=== PATIENT | female | born 1955 | race Caucasian/White ===

== ENCOUNTER 2019-12-12 10:54 | Outpatient (CLI) | payer OTHER, SELFPAY | END 2019-12-12 10:55 | disposition home or self-care (01) | LOC: ANHSURGERY 10:59 | PROVIDERS: PCP Physician Assistant; Visit Provider Urology | DX: N30.10 Interstitial cystitis (chronic) without hematuria (principal) | CPT/HCPCS: 87086 ==

== ENCOUNTER 2019-12-20 00:33 | Outpatient (CLI) | payer OTHER, SELFPAY ==
[2019-12-20 19:29] LABS: SARS-CoV-2 RNA PCR Negative
== END 2019-12-20 00:34 | disposition home or self-care (01) ==
LOC: ANHCOVIDDT 00:33
PROVIDERS: PCP Physician Assistant; Visit Provider Urology
DX: Z01.812 Encounter for preprocedural laboratory examination (principal); Z20.828 Contact with and (suspected) exposure to other viral communicable diseases
CPT/HCPCS: 87635; C9803; U0003

== ENCOUNTER 2019-12-23 00:59 | Day surgery (SDC) | payer OTHER, SELFPAY ==
[2019-12-10 09:50] VITALS: BMI 31.9
--- NOTE | 2019-12-22 07:40 | P.HP_ITS ---
H&P: HPI History of Present Illness Date/Time: 12/22/19 07:40 Chief complaint: hunters ulcer Narrative: Miriam Romo is a 64 year old female with suprapubic pain and h/o Hunner Ulcer last treated without steriid in 09/10 [facility] Social History Social History Smoking status: Never smoker Second hand tobacco smoke exposure: No Alcohol intake: never Substance use: never Spiritual care concerns: No Meds Home Medications and Allergies Home Medications Medication Instructions Recorded Confirmed Type aspirin 81 mg PO DAILY 12/10/19 12/10/19 History calcium carb and citrate-vitD3 2 tablet PO DAILY 12/10/19 12/10/19 History cetirizine [Zyrtec] 10 mg PO HS 12/10/19 12/10/19 History cholecalciferol (vitamin D3) 125 mcg PO DAILY 12/10/19 12/10/19 History [Vitamin D3] meloxicam 15 mg DAILY 12/10/19 12/10/19 History omega 2-zvp-kdh-fish oil [Fish Oil] 1 cap PO DAILY 12/10/19 12/10/19 History omeprazole 20 mg PO DAILY 12/10/19 12/10/19 History phenazopyridine 200 mg DAILY 12/10/19 12/10/19 History tramadol 25 mg PO HS 12/10/19 12/10/19 History Allergies Allergy/AdvReac Type Severity Reaction Status Date / Time amoxicillin Allergy Itching Verified 12/10/19 09:34 Exam Const: General: no acute distress HENMT: General nose exam: Normal nares present Eyes: EOM: EOMs intact bilaterally Neck: Neck: supple Resp: Effort & Inspection: normal respiratory effort GI: GI Palp: Yes Soft to palpation Skin: General skin exam: normal color Neuro: Motor exam (neuro): Normal motor muscle tone present throughout Psych: Mental Status: mental status grossly normal Assessment and Plan Assessment and plan (1) Hunner's ulcer: Code(s): N30.10 - Interstitial cystitis (chronic) without hematuria Status: Acute Assessment and Plan: cysto/biopsy/steroid injection
--- NOTE | 2019-12-22 13:08 | WPDANESEPP ---
Anes - Eval Pre Procedure Procedure: Operation Date: 12/23/19 08:00 Proposed Procedures p Cystoscopy, Bladder Biopsy with Steroid Injection - Jewel Tovar MD Date/Time: 12/22/19 13:08 Pre Op Diagnosis: hunters ulcer Patient Data Age: 64 Gender: F Height: 1.73 m Weight: 95.25 kg Allergies Allergy/AdvReac Type Severity Reaction Status Date / Time amoxicillin Allergy Itching Verified 12/10/19 09:34 Home Medications Medication Instructions Recorded Confirmed Type aspirin 81 mg PO DAILY 12/10/19 12/10/19 History calcium carb and citrate-vitD3 2 tablet PO DAILY 12/10/19 12/10/19 History cetirizine [Zyrtec] 10 mg PO HS 12/10/19 12/10/19 History cholecalciferol (vitamin D3) 125 mcg PO DAILY 12/10/19 12/10/19 History [Vitamin D3] meloxicam 15 mg DAILY 12/10/19 12/10/19 History omega 4-fvu-ffa-fish oil [Fish Oil] 1 cap PO DAILY 12/10/19 12/10/19 History omeprazole 20 mg PO DAILY 12/10/19 12/10/19 History phenazopyridine 200 mg DAILY 12/10/19 12/10/19 History tramadol 25 mg PO HS 12/10/19 12/10/19 History Patient hx anesthesia problems: post op nausea/vomiting Family hx anesthesia problems: none PMFSH Past Medical History Medical History (Updated 12/22/19 @ 13:12 by Amna Ibarra CRNA) Arthritis GERD (gastroesophageal reflux disease) Hunner's ulcer IBS (irritable bowel syndrome) Surgical History Surgical History (Updated 12/22/19 @ 13:10 by Amna Ibarra CRNA) H/O: hysterectomy History of knee replacement Social History Social History Smoking status: Never smoker Second hand tobacco smoke exposure: No Alcohol intake: never Substance use: never Spiritual care concerns: No Exam Day of Procedure 12/22/19 13:08
[2019-12-23] VITALS (8 sets, daily range): BP systolic 124–153; BP diastolic 69–79; PULSE 61–86; RESP 10–16; TEMP 36.1–36.3; O2SAT 96–100
--- NOTE | 2019-12-23 06:54 | WPDANESEPPF ---
Anes - Initial Pre Proc Eval Procedure: Operation Date: 12/23/19 08:00 Proposed Procedures p Cystoscopy, Bladder Biopsy with Steroid Injection - Jewel Tovar MD Date/Time: 12/23/19 06:54 Surgeon: Jewel Tovar MD Pre Op Diagnosis: hunters ulcer Patient Data Age: 64 Gender: F Height: 5 ft 8 in Weight: 97.8 kg Allergies Allergy/AdvReac Type Severity Reaction Status Date / Time amoxicillin Allergy Intermediate Itching Verified 12/23/19 06:27 Home Medications Medication Instructions Recorded Confirmed Type aspirin 81 mg PO DAILY 12/10/19 12/23/19 History calcium carb and citrate-vitD3 2 tablet PO DAILY 12/10/19 12/23/19 History cetirizine [Zyrtec] 10 mg PO HS 12/10/19 12/23/19 History cholecalciferol (vitamin D3) 125 mcg PO DAILY 12/10/19 12/23/19 History [Vitamin D3] meloxicam 15 mg DAILY 12/10/19 12/23/19 History omega 1-fbu-zow-fish oil [Fish Oil] 1 cap PO DAILY 12/10/19 12/23/19 History omeprazole 20 mg PO DAILY 12/10/19 12/23/19 History phenazopyridine 200 mg DAILY 12/10/19 12/23/19 History tramadol 25 mg PO HS 12/10/19 12/23/19 History Patient hx anesthesia problems: post op nausea/vomiting Family hx anesthesia problems: none PMFSH Past Medical History Medical History (Updated 12/22/19 @ 13:12 by Amna Ibarra CRNA) Arthritis GERD (gastroesophageal reflux disease) Hunner's ulcer IBS (irritable bowel syndrome) Surgical History Surgical History (Updated 12/22/19 @ 13:10 by Amna Ibarra CRNA) H/O: hysterectomy History of knee replacement Social History Social History Smoking status: Never smoker Second hand tobacco smoke exposure: No Alcohol intake: never Substance use: never Living arrangements: alone Spiritual care concerns: No Anes - Eval Final PreProcedure Day of Procedure 12/23/19 06:54 Patient weight: overweight Heart: regular rate and rhythm Lungs: clear to auscultation Airway: Mallampati scale class II Neurological: alert and oriented Last oral intake: >/= 8 hours ASA classification: II Emergent: no Anesthetic plan: proceed Anesthesia type and monitoring: general GIVS and standard monitoring Informed Consent: The patient's anesthetic plan and its attendant risks and benefits were discussed with the patient/family/POA. Questions were solicited and answers provided to the satisfaction of the patient/family/POA.
[2019-12-23] MEDS: LACTATED RINGERS 1,000 ML 30 ML IV CONT (07:09)
[2019-12-23] MEDS: SCOPOLAMINE 1.5 MG PATCH TRANSDERM (07:10)
[2019-12-23] MEDS: ONDANSETRON INJ 4 MG/2 ML VIAL IV PUSH (07:10)
--- NOTE | 2019-12-23 07:24 | WPDHPUPDATE1 ---
History and Physical Update Update Date/Time: 12/23/19 07:24 History and Physical has been reviewed, including an updated exam of the patient. There are NO changes in the patient's condition. Risks, benefits, and alternatives have been discussed and questions answered. Patient agrees to proceed with procedure.
[2019-12-23] MEDS: levoFLOXacin 500 MG/D5W 100 ML 500 MG/100 ML BAG 100 MG IVPB (08:02)
[2019-12-23] MEDS: LIDOCAINE HCL 2% GEL UROJET 10 ML PKG MUCOUS MEM (08:14)
[2019-12-23] MEDS: TRIAMCINOLONE ACET INJ 40 MG/ML VIAL 120 MG XX (08:20)
--- NOTE | 2019-12-23 08:25 | PM.PROC ---
Procedure Note - Detailed Date of procedure: 12/23/19 Pre-op diagnosis: hunters ulcer Hunner's ulcer Post-op diagnosis: same Procedure performed: Cystoscopy with bladder biopsy and injection of steroid Description of procedure: After anesthesia was induced the patient was correctly identified and informed consent was obtained. They are placed in the dorsal lithotomy position. There prepped and draped in a sterile fashion. A time-out performed. I performed cystoscopy. There were areas of Hunner's ulceration inside the bladder. This was biopsied in generously fulgurated. I then injected Kenalog at a dose of 40 milligrams/mL. I injected 3 cc total. There was minimal bleeding from the injection sites. The bladder was examined under low insufflation pressures and there was no active bleeding. The bladder was drained. The awakened and transferred to the PACU in stable condition. Of note she has a known reaction to steroids which her rash. We did this procedure in the past not using steroids and it did not last very long. She would like a repeat trial of steroid. Implants: None Anesthesia: MAC Surgeon: Jewel Tovar MD Drains: No Packing: No Pathology: yes (Bladder biopsy) Complications: No immediate complications Condition: stable Disposition: PACU
== END 2019-12-23 10:23 | disposition home or self-care (01) ==
PROVIDERS: PCP Physician Assistant; Visit Provider Urology
PROC: 0TBB8ZX Excision of Bladder, Via Natural or Artificial Opening Endoscopic, Diagnostic (ICD-10-PCS; CPT 52204; principal; 2019-12-23 08:00)
DX: N30.10 Interstitial cystitis (chronic) without hematuria (principal); K21.9 Gastro-esophageal reflux disease without esophagitis; M19.90 Unspecified osteoarthritis, unspecified site; K58.9 Irritable bowel syndrome, unspecified
CPT/HCPCS: 52204; 52283; 87635; 88305; A9270; C9803; J1100; J1200; J1956; J2250; J2405; J2704; J3010; J3301; J7120; U0003

== ENCOUNTER 2021-08-11 09:19 | Outpatient (CLI) | payer OTHER, SELFPAY | END 2021-08-11 09:20 | disposition home or self-care (01) | LOC: ANHSURGERY 09:26 | PROVIDERS: PCP Physician Assistant; Visit Provider Urology | DX: N30.10 Interstitial cystitis (chronic) without hematuria (principal); Z01.818 Encounter for other preprocedural examination | CPT/HCPCS: 87086; 87088 ==

== ENCOUNTER 2021-08-16 00:54 | Day surgery (SDC) | payer OTHER, SELFPAY ==
--- NOTE | 2021-08-09 10:38 | SUR.PREOP ---
Addendum entered by Amparo Rabago RN 08/09/21 10:56: INSTRUCTED TO STOP ASPIRIN & FISH OIL 08/09/21 Original Note: Report to the Outpatient Waiting Room, entrance under the hooper pavilion located off [facility], at time 1130 on date 08/16/21. OR Time: 1330. - You and your visitor will be asked a series of questions to screen for COVID 19 for your protection. - A mask is required within the hospital. Preoperative COVID Testing Requirements: No COVID Test needed if: (proof is required; if not received patient will have Rapid Test prior to entry) - Patient has received COVID Vaccine at least 14 days prior to procedure date or - Patient has positive COVID test result within last 90 days of surgery date. COVID Test needed if above criteria is not met If not COVID vaccinated a COVID test must be conducted within 72 hours of surgery and patient is asked to isolate self from time of testing until procedure. You will go to the [facility] for your COVID testing. The [facility] site is located at the corner of [address] [facility]. You will only be called if COVID results are positive and your surgeon may reschedule your elective surgery date. Patients may have clear liquids (water, carbonated beverages, clear teas, apple juice) until 3 hours prior to surgery with a maximum of 20 ounces. - NO CLEAR LIQUIDS AFTER 1030 - No food from midnight until time of surgery - Infants may have breast milk until 4 hours before surgery, formula 6 hours prior to surgery. - Children will be allowed to drink immediately following surgery. If applicable, please bring a bottle or sippy cup to assist with drinking. Juice, water, soda, and popsicles are readily available. For infants on formula, please bring formula the day of surgery. Pacifiers are allowed. Take the following medications with a SIP of water the morning of surgery: TRAMADOL, ACETAMINOPHEN Medications to discontinue per physician VITAMINS & SUPPLEMENTS STOP ON 08/13/21, CALL DR PAINTING IN REGARDS TO STOPPING ASPIRIN & FISH OIL Please no make-up, nail ethiopian, hairspray, perfume, deodorant, or body powder the day of surgery. No jewelry (including any body piercings) or valuables the day of surgery, leave them at home. Please take a shower or bath the night before, or the morning of, surgery with an antibacterial soap. Wear comfortable, loose fitting clothing. Children are encouraged to wear pajamas. - Jewelry must be removed prior to entering the operating room. Rings and piercings that are not removed may be cut off. - The hospital will not accept responsibility for valuables. - Please leave all valuables, including medications, at home the day of surgery. If you are going home after surgery, a licensed driver helper must drive you home. - NO public transportation without another adult. - We recommend that an adult stay with you for 24 hours following discharge. - We also recommend that you do not drive, make important decision, drink alcoholic beverages, or take any drugs that were not prescribed by your health care provider for at least 24 hours after your discharge time. For Pediatric surgeries, we recommend two adults accompany the child home (only one inside the building at this time). One visitor will be allowed to accompany the patient into the hospital. Patients visitor will be instructed to remain with patient at all times or leave the building. We will allow the visitor to come back to the postoperative area when patient is ready. Follow any additional instructions given to you from your surgeon. Telephone instructions given to CASSIDY DELEON and asked if any additional questions and then verbalized understanding. Patient advised to call surgeon office or pre surgery nurse liaison [phone] if any additional questions.
[2021-08-09 10:46] VITALS: BMI 32.2
--- NOTE | 2021-08-13 10:23 | PM.IMHP ---
H&P: HPI History of Present Illness Date/Time: 08/13/21 10:23 History of Hunner's ulcer. Has recurrent symptoms. Here today for cystoscopy biopsy steroid injection Chief Complaint: Hunner's ulcer Review of Systems Review of Systems: All systems reviewed & are unremarkable except as noted in HPI and below PMFSH Past Medical History Medical History Arthritis GERD (gastroesophageal reflux disease) Hunner's ulcer IBS (irritable bowel syndrome) Surgical History Surgical History H/O: hysterectomy History of knee replacement Social History Social History Smoking status: Never smoker Second hand tobacco smoke exposure: No Alcohol intake: never Substance use: never Spiritual care concerns: No Meds Home Medications and Allergies Home Medications Medication Instructions Recorded Confirmed Type aspirin 81 mg PO HS 12/10/19 08/09/21 History calcium carb and citrate-vitD3 2 tablet PO DAILY 12/10/19 08/09/21 History cetirizine [Zyrtec] 10 mg PO HS 12/10/19 08/09/21 History cholecalciferol (vitamin D3) 125 mcg PO DAILY 12/10/19 08/09/21 History [Vitamin D3] omega 5-caa-mvi-fish oil [Fish Oil] 1 cap PO DAILY 12/10/19 08/09/21 History omeprazole 20 mg PO DAILY 12/10/19 08/09/21 History phenazopyridine 200 mg DAILY PRN 12/10/19 08/09/21 History tramadol 50 mg PO Q6H PRN #20 tablet 12/23/19 08/09/21 Rx acetaminophen [Tylenol Extra 1,000 mg PO Q6H PRN 08/09/21 08/09/21 History Strength] benzonatate 100 mg PO TID PRN 08/09/21 08/09/21 History d-mannose 500 mg PO DAILY 08/09/21 08/09/21 History doxycycline hyclate 100 mg PO BID 08/09/21 08/09/21 History dwloaieyavqa-Tw-zkxy-minerals 1 tablet PO DAILY 08/09/21 08/09/21 History [Women's Daily Multivitamin] zinc 50 mg PO DAILY 08/09/21 08/09/21 History Allergies Allergy/AdvReac Type Severity Reaction Status Date / Time amoxicillin Allergy Intermediate Itching Verified 08/09/21 10:46 gluten AdvReac Intermediate Abdominal Verified 08/09/21 10:46 Pain Exam Narrative: No acute distress Normal breathing Alert orient x3 Assessment and Plan Assessment and plan (1) Hunner's ulcer: Code(s): N30.10 - Interstitial cystitis (chronic) without hematuria Status: Acute Assessment and Plan: Cystoscopy, bladder biopsy, steroid injection
--- NOTE | 2021-08-16 07:13 | WPDHPUPDATE1 ---
History and Physical Update Update Date/Time: 08/16/21 07:13 History and Physical has been reviewed, including an updated exam of the patient. There are NO changes in the patient's condition. Risks, benefits, and alternatives have been discussed and questions answered. Patient agrees to proceed with procedure.
[2021-08-16] MEDS: LACTATED RINGERS 1,000 ML 30 ML IV CONT (11:55)
[2021-08-16 11:57] VITALS: BP 137/70; PULSE 62; RESP 16; TEMP 36.6; O2SAT 100
--- NOTE | 2021-08-16 13:00 | WPDANESEPPF ---
Anes - Initial Pre Proc Eval Procedure: Operation Date: 08/16/21 13:30 Proposed Procedures p Cystoscopy, Bladder Biopsy, Steroid Injection - Jewel Tovar MD Date/Time: 08/16/21 13:00 Surgeon: Jewel Tovar MD Pre Op Diagnosis: interstitial cystitis Patient Data Age: 65 Gender: F Height: 1.73 m Weight: 98.4 kg Last Vital Signs Temp 36.6 C 08/16/21 11:57 Pulse 62 08/16/21 11:57 Resp 16 08/16/21 11:57 BP 137/70 08/16/21 11:57 Pulse Ox 100 08/16/21 11:57 Allergies Allergy/AdvReac Type Severity Reaction Status Date / Time amoxicillin Allergy Intermediate Itching Verified 08/16/21 11:30 gluten AdvReac Intermediate Abdominal Verified 08/16/21 11:30 Pain Home Medications Medication Instructions Recorded Confirmed Type aspirin 81 mg PO HS 12/10/19 08/16/21 History calcium carb and citrate-vitD3 2 tablet PO DAILY 12/10/19 08/16/21 History cetirizine [Zyrtec] 10 mg PO HS 12/10/19 08/16/21 History cholecalciferol (vitamin D3) 125 mcg PO DAILY 12/10/19 08/16/21 History [Vitamin D3] omega 5-xoj-jxj-fish oil [Fish Oil] 1 cap PO DAILY 12/10/19 08/16/21 History omeprazole 20 mg PO DAILY 12/10/19 08/16/21 History phenazopyridine 200 mg DAILY PRN 12/10/19 08/09/21 History tramadol 50 mg PO Q6H PRN #20 tablet 12/23/19 08/16/21 Rx acetaminophen [Tylenol Extra 1,000 mg PO Q6H PRN 08/09/21 08/16/21 History Strength] benzonatate 100 mg PO TID PRN 08/09/21 08/16/21 History d-mannose 500 mg PO DAILY 08/09/21 08/16/21 History doxycycline hyclate 100 mg PO BID 08/09/21 08/16/21 History xotmfwumpdxq-Ss-nxqq-minerals 1 tablet PO DAILY 08/09/21 08/16/21 History zinc 50 mg PO DAILY 08/09/21 08/16/21 History phenazopyridine [Pyridium] 200 mg PO TID PRN #30 tablet 08/16/21 Rx tramadol 50 mg PO Q6H PRN #20 tablet 08/16/21 Rx Patient hx anesthesia problems: none Family hx anesthesia problems: none Results Review: All pre-operative results and documents have been reviewed as part of the pre-operative evaluation. [facility] Past Medical History Medical History (Updated 08/16/21 @ 13:00 by Sheldon Luis DO) Arthritis GERD (gastroesophageal reflux disease) Hunner's ulcer IBS (irritable bowel syndrome) TIA (transient ischemic attack) Surgical History Surgical History H/O: hysterectomy History of knee replacement Social History Social History Smoking status: Never smoker Second hand tobacco smoke exposure: No Alcohol intake: never Substance use: never Living arrangements: alone Spiritual care concerns: No Anes - Eval Final PreProcedure Day of Procedure 08/16/21 13:00 Patient weight: obese Heart: regular rate and rhythm Lungs: clear to auscultation and normal air movement Airway: Mallampati scale class II Neurological: alert and oriented Last oral intake: >/= 8 hours ASA classification: III Emergent: no Anesthetic plan: proceed Anesthesia type and monitoring: general GIVS and standard monitoring Results Review: All pre-operative results and documents have been reviewed as part of the pre-operative evaluation. Informed Consent: The patient's anesthetic plan and its attendant risks and benefits were discussed with the patient/family/POA. Questions were solicited and answers provided to the satisfaction of the patient/family/POA.
[2021-08-16] MEDS: ceFAZolin 2 GM/D5W 50 ML 2 GM/50 ML BAG IVPB (14:07)
[2021-08-16] MEDS: TRIAMCINOLONE ACET INJ 40 MG/ML VIAL 160 MG XX (14:28)
[2021-08-16 14:35] VITALS: BP 116/63; PULSE 67; RESP 16; O2SAT 100
--- NOTE | 2021-08-16 14:42 | W.PM.PROC2 ---
Procedure Note - Detailed Date of Procedure 08/16/21 Pre-op Diagnosis Hunner's ulceration Post-op Diagnosis Same Procedure Performed Cystoscopy, bladder biopsy, injection of steroids Surgeon Jewel Tovar MD Anesthesia MAC and Local Indications This is a with recurrent Hunner's ulcers. She has recurrent symptoms in here today for treatment Findings Minimally inflamed area of Hunner's ulceration on left lateral wall Description of Procedure She has correctly identified. Informed consent obtained. Urine the operating room. She was given MAC anesthesia. She was placed in dorsal lithotomy position. She was prepped and draped in a sterile fashion. Time-out performed. Cystoscopy revealed mild trabeculation. She had a small area of inflammation on the left lateral wall. There was some blanching around this area. It was remote from the ureteral orifice. A biopsy was done. The area was generously fulgurated. I then injected 4 cc of Kenalog 20 mg per mail into the area. There is no bleeding under low insufflation pressures. All cautery was done away from ureteral orifices. She was awakened and transferred to PACU in stable condition once her bladder was drained. Implants None Estimated Blood Loss 1 Drains No Packing No Pathology Yes (Bladder biopsy) Complications No immediate complications Condition Stable Disposition PACU
[2021-08-16 15:05] VITALS: BP 130/67; PULSE 70; RESP 16
[2021-08-16 15:25] VITALS: BP 112/89; PULSE 66; RESP 16
== END 2021-08-16 15:50 | disposition home or self-care (01) ==
PROVIDERS: PCP Physician Assistant; Visit Provider Urology
PROC: 0TBB8ZX Excision of Bladder, Via Natural or Artificial Opening Endoscopic, Diagnostic (ICD-10-PCS; CPT 52204; principal; 2021-08-16 13:30)
DX: N30.10 Interstitial cystitis (chronic) without hematuria (principal); K21.9 Gastro-esophageal reflux disease without esophagitis; K58.9 Irritable bowel syndrome, unspecified; Z79.82 Long term (current) use of aspirin; E66.9 Obesity, unspecified; Z68.33 Body mass index [BMI] 33.0-33.9, adult
CPT/HCPCS: 52204; 52283; 88305; A9270; J0690; J2250; J2704; J3010; J3301; J7120

== ENCOUNTER 2021-11-29 11:26 | Outpatient (CLI) | payer MEDICARE, OTHER, SELFPAY | END 2021-11-29 11:27 | disposition home or self-care (01) | LOC: ANHSURGERY 11:30 | PROVIDERS: PCP Physician Assistant; Visit Provider Urology | DX: N30.10 Interstitial cystitis (chronic) without hematuria (principal); Z01.818 Encounter for other preprocedural examination | CPT/HCPCS: 87086 ==

== ENCOUNTER 2021-12-03 00:26 | Day surgery (SDC) | payer MEDICARE, OTHER, SELFPAY ==
[2021-11-25 09:22] VITALS: BMI 32.8
--- NOTE | 2021-11-25 09:30 | PC.NURSE ---
PRE-OP INSTRUCTIONS, PLEASE CAREFULLY Report to the Outpatient Waiting Room, entrance under the green pavilion located off [facility], at time _0700_ on date _12/03/21_. OR Time: _0900_. - You and your visitor will be asked a series of questions to screen for COVID 19 for your protection. - Only one visitor is allowed at this time. - The patient visitor is requested to leave or wait in car when not with patient. - A mask is required within the hospital. Patients may have clear liquids (water, carbonated beverages, clear teas, apple juice) until 3 hours prior to surgery (0600 AM) with a maximum of 20 ounces. - No food from midnight until time of surgery Take the following medications with a SIP of water the morning of surgery: _TYLENOL &/OR TRAMADOL_ Medications to discontinue ___ASPIRIN PER DR. PAINTING'S INSTRUCTIONS__ Medications to discontinue per ANESTHESIA - _ALL VITAMINS AND SUPPLEMENTS 3 DAYS PRIOR TO SURGERY, Date to take last dose 11/29/21_ Please no make-up, nail djiboutian, hairspray, perfume, deodorant, or body powder the day of surgery. No jewelry (including any body piercings) or valuables the day of surgery, leave them at home. Please take a shower or bath the night before, or the morning of, surgery with an antibacterial soap. Wear comfortable, loose fitting clothing. - Jewelry must be removed prior to entering the operating room. Rings and piercings that are not removed may be cut off. - The hospital will not accept responsibility for valuables. - Please leave all valuables, including medications, at home the day of surgery. If you are going home after surgery, a licensed bung driver must drive you home. - NO public transportation without another adult. - We recommend that an adult stay with you for 24 hours following discharge. - We also recommend that you do not drive, make important decision, drink alcoholic beverages, or take any drugs that were not prescribed by your health care provider for at least 24 hours after your discharge time. Follow any additional instructions given to you from your surgeon. If you or anyone in your household have experienced Covid symptoms in the past week, please notify your surgeon or the nurse liaison at the phone number below for possible testing. Telephone instructions given to ___PT and asked if any additional questions and then verbalized understanding. Patient advised to call surgeon office or pre surgery nurse liaison [phone] if any additional questions.
--- NOTE | 2021-11-29 07:48 | P.HP_ITS ---
H&P: HPI History of Present Illness Date/Time: 11/29/21 07:48 Chief Complaint: Hunner's ulcer Narrative: in need of repeat steroid injection Review of Systems Review of Systems: All systems reviewed & are unremarkable except as noted in HPI and below [facility] Past Medical History Medical History Arthritis GERD (gastroesophageal reflux disease) Hunner's ulcer IBS (irritable bowel syndrome) TIA (transient ischemic attack) Surgical History Surgical History H/O: hysterectomy History of knee replacement Social History Social History Smoking status: Never smoker Second hand tobacco smoke exposure: No Alcohol intake: never Substance use: never Substance use type: does not use Spiritual care concerns: No Meds Home Medications and Allergies Home Medications Medication Instructions Recorded Confirmed Type aspirin 81 mg chewable tablet 81 mg PO HS 12/10/19 11/25/21 History calcium carb,cit ER 600 mg-vit D3 2 tablet PO DAILY 12/10/19 11/25/21 History 12.5 mcg (500 unit) tablet,ext.rel cetirizine 10 mg tablet (Zyrtec) 10 mg PO HS 12/10/19 11/25/21 History cholecalciferol (vitamin D3) 125 125 mcg PO DAILY 12/10/19 11/25/21 History mcg (5,000 unit) tablet (Vitamin D3) omega 3-oci-dmk-fish oil 1,200 mg 1 cap PO DAILY 12/10/19 11/25/21 History (144 mg-216 mg) capsule (Fish Oil) omeprazole 20 mg capsule,delayed 20 mg PO DAILY 12/10/19 11/25/21 History release acetaminophen 500 mg tablet 1,000 mg PO Q6H PRN cough 08/09/21 11/25/21 History (Tylenol Extra Strength) benzonatate 100 mg capsule 100 mg PO TID PRN Cough 08/09/21 11/25/21 History d-mannose 500 mg capsule 500 mg PO DAILY 08/09/21 11/25/21 History doxycycline hyclate 100 mg tablet 100 mg PO BID 08/09/21 11/25/21 History xefjdgmuuztq-Do-kmxj-minerals 18 1 tablet PO DAILY 08/09/21 11/25/21 History mg-0.4 mg tablet zinc 50 mg capsule 50 mg PO DAILY 08/09/21 11/25/21 History phenazopyridine 200 mg tablet 200 mg PO TID PRN pain 6 doses #30 08/16/21 11/25/21 Rx (Pyridium) tabs tramadol 50 mg tablet 50 mg PO Q6H PRN pain #20 tabs 08/16/21 11/25/21 Rx Allergies Allergy/AdvReac Type Severity Reaction Status Date / Time amoxicillin Allergy Intermediate Itching Verified 11/25/21 09:17 gluten AdvReac Intermediate Abdominal Verified 11/25/21 09:17 Pain Exam Narrative: no acute distress normal breathing alert oriented x3 Assessment and Plan Assessment and plan (1) Hunner's ulcer: Code(s): N30.10 - Interstitial cystitis (chronic) without hematuria Status: Acute Assessment and Plan: cystoscopy, bladder biopsy, steroid injection
--- NOTE | 2021-12-03 07:11 | WPDHPUPDATE1 ---
History and Physical Update Update Date/Time: 12/03/21 07:11 History and Physical has been reviewed, including an updated exam of the patient. There are NO changes in the patient's condition. Risks, benefits, and alternatives have been discussed and questions answered. Patient agrees to proceed with procedure.
[2021-12-03] MEDS: LACTATED RINGERS 1,000 ML 30 ML IV CONT (07:30)
[2021-12-03 07:41] VITALS: BP 135/73; PULSE 83; RESP 14; TEMP 36.5; O2SAT 100
[2021-12-03] MEDS: SCOPOLAMINE 1.5 MG PATCH TRANSDERM (08:00)
--- NOTE | 2021-12-03 08:32 | WPDANESEPPF ---
Anes - Initial Pre Proc Eval Procedure: Operation Date: 12/03/21 09:00 Proposed Procedures p Cystoscopy, Steroid Injection - Jewel Tovar MD Date/Time: 12/03/21 08:32 Surgeon: Jewel Tovar MD Pre Op Diagnosis: hunters ulcers Patient Data Age: 66 Gender: F Height: 1.73 m Weight: 97.9 kg Last Vital Signs Temp 36.5 C 12/03/21 07:41 Pulse 83 12/03/21 07:41 Resp 14 12/03/21 07:41 BP 135/73 12/03/21 07:41 Pulse Ox 100 12/03/21 07:41 O2 Del Method Room Air 12/03/21 07:41 Allergies Allergy/AdvReac Type Severity Reaction Status Date / Time amoxicillin Allergy Intermediate Itching Verified 12/03/21 07:54 gluten AdvReac Intermediate Abdominal Verified 12/03/21 07:54 Pain Home Medications Medication Instructions Recorded Confirmed Type aspirin 81 mg chewable tablet 81 mg PO HS 12/10/19 11/25/21 History calcium carb,cit ER 600 mg-vit D3 2 tablet PO DAILY 12/10/19 11/25/21 History 12.5 mcg (500 unit) tablet,ext.rel cetirizine 10 mg tablet (Zyrtec) 10 mg PO HS 12/10/19 11/25/21 History cholecalciferol (vitamin D3) 125 125 mcg PO DAILY 12/10/19 11/25/21 History mcg (5,000 unit) tablet (Vitamin D3) omega 8-nkb-dhy-fish oil 1,200 mg 1 cap PO DAILY 12/10/19 11/25/21 History (144 mg-216 mg) capsule (Fish Oil) omeprazole 20 mg capsule,delayed 20 mg PO DAILY 12/10/19 11/25/21 History release acetaminophen 500 mg tablet 1,000 mg PO Q6H PRN cough 08/09/21 11/25/21 History (Tylenol Extra Strength) benzonatate 100 mg capsule 100 mg PO TID PRN Cough 08/09/21 11/25/21 History d-mannose 500 mg capsule 500 mg PO DAILY 08/09/21 11/25/21 History doxycycline hyclate 100 mg tablet 100 mg PO BID 08/09/21 11/25/21 History xpysvgafaqds-Xp-dbru-minerals 18 1 tablet PO DAILY 08/09/21 11/25/21 History mg-0.4 mg tablet zinc 50 mg capsule 50 mg PO DAILY 08/09/21 11/25/21 History phenazopyridine 200 mg tablet 200 mg PO TID PRN pain 6 doses #30 08/16/21 11/25/21 Rx (Pyridium) tabs tramadol 50 mg tablet 50 mg PO Q6H PRN pain #20 tabs 08/16/21 11/25/21 Rx Patient hx anesthesia problems: post op nausea/vomiting Family hx anesthesia problems: none Results Review: All pre-operative results and documents have been reviewed as part of the pre-operative evaluation. FORMERLY [facility] Past Medical History Medical History Arthritis GERD (gastroesophageal reflux disease) Hunner's ulcer IBS (irritable bowel syndrome) TIA (transient ischemic attack) Surgical History Surgical History H/O: hysterectomy History of knee replacement Social History Social History Smoking status: Never smoker Second hand tobacco smoke exposure: No Alcohol intake: never Substance use: never Substance use type: does not use Living arrangements: alone Spiritual care concerns: No Anes - Eval Final PreProcedure Day of Procedure 12/03/21 08:32 Patient weight: obese Heart: regular rate and rhythm Lungs: clear to auscultation Airway: Mallampati scale class II Neurological: alert and oriented Last oral intake: >/= 8 hours ASA classification: III Emergent: no Anesthetic plan: proceed Anesthesia type and monitoring: general GIVS and standard monitoring Results Review: All pre-operative results and documents have been reviewed as part of the pre-operative evaluation. Informed Consent: The patient's anesthetic plan and its attendant risks and benefits were discussed with the patient/family/POA. Questions were solicited and answers provided to the satisfaction of the patient/family/POA.
[2021-12-03] MEDS: ceFAZolin 2 GM/D5W 50 ML 2 GM/50 ML BAG IVPB (09:09)
[2021-12-03] MEDS: TRIAMCINOLONE ACET INJ 40 MG/ML VIAL 200 MG XX (09:16)
[2021-12-03] MEDS: LIDOCAINE HCL 2% GEL UROJET 10 ML PKG MUCOUS MEM (09:17)
[2021-12-03 09:32] VITALS: BP 125/75; PULSE 70; RESP 16; O2SAT 97
--- NOTE | 2021-12-03 09:43 | W.PM.PROC2 ---
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 Informed consent obtained. She from the operating room. She was given MAC anesthesia. She was prepped draped sterile fashion. She was given appropriate perioperative antibiotics. A time-out performed. I performed cystoscopy. She had a small capacity bladder. Ureteral orifices were normal. There is no tumors. There was an area of Hunner's ulceration on left lateral wall. It was biopsied. It was fulgurated. It was checked with Kenalog. 200 mg total. The concentration was 40 mg/mL. There is no bleeding low insufflation pressures. Her bladder was drained. She was awakened transferred to PACU in stable condition. Estimated Blood Loss 1 Drains No Packing No Pathology Yes (Bladder biopsy) Complications No immediate complications Condition Stable Disposition PACU
[2021-12-03] MEDS: ONDANSETRON INJ 4 MG/2 ML VIAL IV PUSH (09:57)
[2021-12-03 10:00] VITALS: BP 130/68; PULSE 67
[2021-12-03 10:30] VITALS: BP 132/72; PULSE 63
== END 2021-12-03 10:45 | disposition home or self-care (01) ==
PROVIDERS: PCP Physician Assistant; Visit Provider Urology
PROC: 3E0K8GC Introduction of Other Therapeutic Substance into Genitourinary Tract, Via Natural or Artificial Opening Endoscopic (ICD-10-PCS; CPT 52287; principal; 2021-12-03 09:00)
DX: N30.10 Interstitial cystitis (chronic) without hematuria (principal); Z79.82 Long term (current) use of aspirin; M19.90 Unspecified osteoarthritis, unspecified site; K21.9 Gastro-esophageal reflux disease without esophagitis; K58.9 Irritable bowel syndrome, unspecified; Z86.73 Personal history of transient ischemic attack (TIA), and cerebral infarction without residual deficits; E66.9 Obesity, unspecified; Z68.32 Body mass index [BMI] 32.0-32.9, adult
CPT/HCPCS: 52204; 52283; 88305; A9270; J0690; J2405; J2704; J3010; J3301; J7120